=== PATIENT | female | born 1970 | race Caucasian/White ===

== ENCOUNTER 2016-06-21 12:59 | Inpatient (IN) | payer OTHER ==
[~2016-06-21] VITALS: Ht 157.5 cm; Wt 102.5 kg
--- NOTE | 2016-06-21 13:08 | NUR ---
PT AMBULATED TO ED LOBBY WITH SPOUSE, PT DENIES CHEST PAIN, PT REPORTS PAIN ONLY WHEN COUGING. PT RESPIRATIONS ARE EVEN AND UNLABORED BUT PT REPORTS SOB AND HAVING A COUGH FOR PAST COUPLE WEEKS. PT EDUCATED TO INFORM ME IF CONDITION WORSENS WHILE IN LOBBY, PT VERBALIZED UNDERSTANDING.
--- NOTE | 2016-06-21 14:17 | NUR ---
PT C/O SOB AND PRODUCTIVE COUGH W/BROWN SPUTUM X1 WK. VSS. RESPS E/U. NO S/S OF DISTRESS NOTED. COMFORT MEASURES IMPLEMENTED. CALL LIGHT W/IN REACH. PT AWAITING MSE. WILL CONTINUE TO MONITOR.
--- NOTE | 2016-06-21 15:03 | NUR ---
PT AWAITING MSE. VS WNL. RESPS E/U. NO S/S OF DISTRESS NOTED. WILL CONTINUE TO MONITOR.
--- NOTE | 2016-06-21 15:26 | NUR ---
MEDICATED ORDERED. PLEASE SEE EMR. BREATHING TX IN PROGRESS. XRAY AT BEDSIDE.
--- NOTE | 2016-06-21 16:28 | NUR ---
MEDICATED ORDERED. PLEASE SEE EMR.
[2016-06-21 17:24] LABS: BASOPHIL % 0.6 % (0-2); PLATELET COUNT 272 x10^3mcL (130-400); RED CELL DISTRIBUTION WIDTH 12.7 % (11.5-14.5)
[2016-06-21 17:29] LABS: CALCIUM 8.6 mg/dL (8.5-10.1); CREATININE SERUM 1.1 mg/dL (0.6-1.0); POTASSIUM SERUM 4.1 mmol/L (3.5-5.1)
[2016-06-21 17:35] LABS: ALBUMIN 3.4 g/dL (3.4-5.0); BILIRUBIN TOTAL 0.21 mg/dL (0.20-1.00); TOTAL PROTEIN, SERUM 7.7 g/dL (6.4-8.2)
--- NOTE | 2016-06-21 17:39 | NUR ---
UNABLE TO OBTAIN IV ACCESS. DR. DANIELSON MADE AWARE. PT REFUSED FURTHER ATTEMPTS.
--- NOTE | 2016-06-21 18:02 | NUR ---
BREATHING TX IN PROGRESS
--- NOTE | 2016-06-21 18:04 | NUR ---
MEDICATED ORDERED. PLEASE SEE EMR.
[2016-06-21] MEDS ORDERED: LISINOPRIL2.5 MG (18:46)
--- NOTE | 2016-06-21 19:21 | NUR ---
REPORT GIVEN TO SAÚL JORGENSEN FOR CONTINUATION OF CARE PRIMARY RN.
[2016-06-21 19:34] LABS: PHOSPHOROUS 3.4 mg/dL (2.5-4.9)
[2016-06-21 19:35] LABS: CHOLESTEROL/HDL RATIO 4.8
--- NOTE | 2016-06-21 19:35 | NUR ---
RECEIVED PT FROM ED VIA [employer]. CAME IN DUE TO SOB AND COUGH. AAOX4. NO SOB NOTED AT THIS TIME, EXPIRATORY WHEEZES NOTED ON AUSCULTATION. STATED THAT SHE HAS BROWNISH SPUTUM BEFORE ADMISSION BUT AFTER GETTING BREATHING TREATMENTS, SHE STARTED TO HAVE YELLOW PHLEGM. STATED THAT SHE HAS CHEST PAIN (5/10) BUT GETS RELIEF WHE SHE COUGHS. NEW IV SITE INSERTED ON THE RIGHT WRIST, GAUGE 22, W/ GOOD BLOOD RETURN, FLUSHES WELL. SIDE RAILS UPX2. CALL LIGHT ON REACH. ENDORSED.
[2016-06-21 19:44] LABS: T3 TOTAL 1.1 ng/mL
[2016-06-21 19:59] VITALS: BP 154/89
[2016-06-21 20:40] LABS: FREE T4 1.02 ng/dL (0.76-1.46); FREE THYROXINE INDEX 2.2 ug/dL (1.4-4.5); T4(THYROXINE) 7.9 ug/dL (4.7-13.3)
[2016-06-21 21:03] VITALS: BP 154/89
--- NOTE | 2016-06-22 00:21 | NUR ---
ABG ATTEMPTED X 2. PT REFUSED AFTER SECOND ATTEMPT. MD NOTIFIED.
[2016-06-22 00:22] VITALS: BP 130/86
--- NOTE | 2016-06-22 01:50 | NUR ---
PT RESTING IN BED. RR EVEN AND UNLABORED.NO ACUTE DISTRESS NOTED. IV INTACT AND PATENT. CALL LIGHT WITHIN REACH. BED IN LOWEST POSITION. WILL CONTINUE TO MONITOR.
[2016-06-22 05:20] VITALS: BP 144/92
--- NOTE | 2016-06-22 06:48 | NUR ---
PT REFUSED LAB DRAWS LAST NIGHT AND THIS MORNING. PAGED DR. CROOK, AWAITING CALL BACK.
--- NOTE | 2016-06-22 07:10 | NUR ---
REASSESSMENT DONE. PT AWAKE. COOPERATIVE OF CARE. PT C/O PRESSURE-LIKE HEADACHE AT 01/05. TELE 3 ST ON MONITOR. WHEEZING TO BILAT ORTEZ. BOWEL SOUNDS ACTIVE. PT IS AMBULATORY. IV INFUSING NS 50ML/HR TO RIGHT WRIST. BED IN LOW POSITION, CALL LIGHT WITHIN REACH. WILL CONTINUE TO MONITOR.
[2016-06-22 08:50] VITALS: BP 142/85
[2016-06-22 09:14] LABS: BASOPHIL % 0.3 % (0-2); PLATELET COUNT 278 x10^3mcL (130-400); RED CELL DISTRIBUTION WIDTH 12.7 % (11.5-14.5)
[2016-06-22 09:23] LABS: CALCIUM 8.7 mg/dL (8.5-10.1); CARBON DIOXIDE 24.8 mmol/L (21-32); CREATININE SERUM 1.1 mg/dL (0.6-1.0); MAGNESIUM 1.7 mg/dL (1.8-2.4); PHOSPHOROUS 2.3 mg/dL (2.5-4.9); POTASSIUM SERUM 3.3 mmol/L (3.5-5.1)
--- NOTE | 2016-06-22 10:15 | NUR ---
DR MCNEIL AWARE OF LACTIC ACID RESULTS. 3.3. WILL CONTINUE TO MONITOR.
--- NOTE | 2016-06-22 12:25 | NUR ---
PT IN HIGH FOWLERS. PASSED NON MEDS PT TOLERATED WELL. PT STATES HEADCHE HAS DECREASED. PT TALKING TO FAMILY. NO DISCOMFORT REPORTED AT MOMENT.CALL LIGHT WITHIN REACH.
[2016-06-22 14:08] VITALS: BP 141/74
[2016-06-22 14:13] LABS: UA SPECIFIC GRAVITY 1.015 (1.005-1.035); microscopic required? YES; urine erythrocyte NEGATIVE (NEGATIVE)
--- NOTE | 2016-06-22 14:25 | NUR ---
PT C/O OF HEADACHE 06/05 DULL. MEDICATED PER EMAR. PT TOLERATED WELL. CALL LIGHT WITHIN REACH.
[2016-06-22 14:32] LABS: AMPHETAMINE QUAL UR NONE DETECTED (NEG <=1000)
--- NOTE | 2016-06-22 16:00 | NUR ---
PT IN LOW FOWLERS. PT STATES COPPOLA IS 04/07. STATES "IM FEELING BETTER NOW" CALL LIGHT WITHIN REACH.
--- NOTE | 2016-06-22 19:56 | NUR ---
PT A/A/O X4. DENIES DIZZINESS AND HEADACHE THUS FAR. BREATH SOUNDS DIMINISHED ON THE RIGHT SIDE AND WHEEZES NOTED ON THE LEFT. BREATHING EVEN AND UNLABORED ON ROOM AIR. NON PRODUCTIVE COUGH NOTED. DENIES CHEST PAIN AND PRESSURE. BOWEL SOUNDS ACTIVE. NO C/O N/V AND ABD PAIN. IV INTACT ON THE RIGHT WRIST INFUSING WITH NS AT 50 ML/HR. MADE PT COMFORTABLE. PLACED CALL LIGHT WITH IN REACH. WILL CONTINUE TO MONITOR.
[2016-06-22 21:34] VITALS: BP 150/83
--- NOTE | 2016-06-22 22:26 | NUR ---
PT C/O FEELING ANXIOUS AND RESTLESS. GAVE PT ATIVAN IVP AND BENADRYL FOR ITCHYNESS. PT TOLERATED IT WELL. WILL CONTINUE TO MONITOR.
--- NOTE | 2016-06-22 23:36 | NUR ---
PT C/O PAIN. GAVE PT MORPHINE IVP. PT TOLERATED IT WELL. NO C/O RESTLESSNESS AND FEELING ANXIOUS THUS FAR. WILL CONTINUE TO MONITOR.
--- NOTE | 2016-06-23 05:28 | NUR ---
PT QUIET AND RESTING. NO C/O PAIN THUS FAR. IV INTACT AND INFUSING ORDERED. MADE PT COMFORTABLE. WILL ENDORSE TO THE AM NURSE ACCORDINGLY.
[2016-06-23 06:06] VITALS: BP 142/78
[2016-06-23 06:32] LABS: PLATELET COUNT 310 x10^3mcL (130-400); RED CELL DISTRIBUTION WIDTH 12.9 % (11.5-14.5)
[2016-06-23 06:53] LABS: CALCIUM 8.9 mg/dL (8.5-10.1); CARBON DIOXIDE 26.3 mmol/L (21-32); CREATININE SERUM 1.1 mg/dL (0.6-1.0); MAGNESIUM 2.1 mg/dL (1.8-2.4); PHOSPHOROUS 3.2 mg/dL (2.5-4.9); POTASSIUM SERUM 4.2 mmol/L (3.5-5.1)
[2016-06-23 07:04] LABS: BASOPHIL % 0 % (0-2)
--- NOTE | 2016-06-23 08:07 | NUR ---
RECIEVED REPORT FOR FLOOR FINISHER HELPER RN, PT IN BED RESTING QUIETLY ASSESSMENT MADE, PT AOX4 RR EVEN AND UNLABORED LUNG SOUNDS RHONCHI IN LL, HR WNL SCDS IN PLACE CAPILARY REFILL <3, BOWEL SOUNDS ACTIVE IN 4 QAUDRANT PT IS CONTINENT AMBULATED, MILD GENERALIZED WEAKNESS, SKIN WARM DRY AND INTACT, VERBILEZED PAIN 2/10, REPOSITION PT AND SET UP TRAY, IV PATENT AND INTACT, CALL LIGHT WITHIN REACH WILL CONTINUE TO MONITOR FOR CHANGES.
--- NOTE | 2016-06-23 08:30 | NUR ---
DR. MCNEIL MADE AWARE OF SEPSIS TRIGGER BY WBC LEVEL ELEVATION UP TO 16.6. PT ON SOLU-MEDROL, NO NEW ORDERS.
[2016-06-23 09:13] VITALS: BP 156/98
--- NOTE | 2016-06-23 12:48 | NUR ---
PT IN BED RESTING QUIETLY STATED SLEEPY DENIES PAIN, LUNCH TRAY AT BEDSIDE CALL LIGHT WITH IN REACH WILL CONTINUE TO MONITOR
[2016-06-23 14:00] VITALS: BP 151/86
[2016-06-23] MEDS ORDERED: MEDDP PO (15:59)
[2016-06-23] MEDS ORDERED: SINGULAIR10 MG PO (16:01)
[2016-06-23] MEDS ORDERED: PROAIR HFA8.5 GM IH (16:03)
[2016-06-23] MEDS ORDERED: ADV250/50 INH (16:04)
[2016-06-23] MEDS ORDERED: ZES10 PO (16:06)
[2016-06-23] MEDS ORDERED: CYCLOBENZAPRINE5 MG PO (16:07)
[2016-06-23] MEDS ORDERED: ZIT250 PO (16:10)
[2016-06-23] MEDS ORDERED: LAC PO (16:11)
[2016-06-23] MEDS ORDERED: ESGIC CAPSULE1 EACH PO (16:12)
[2016-06-23 17:16] VITALS: BP 151/86
--- NOTE | 2016-06-23 17:45 | NUR ---
PT RECIEVED DISCHARGE INSTRUCTION, FOLLOW UP AND PRESCRIPTION, VERBALIZING UNDERSTANDING, PT IS WAITING FOR RIDE
--- NOTE | 2016-06-23 18:52 | NUR ---
PT DISCHARGED 1851 VIA WHEELCHAIR TO LOBBY
== END 2016-06-23 18:52 | disposition home or self-care (01) | DRG 202 ==
LOC: ED 12:59 → MU 18:55 → DU 18:55 → MU 06-23 15:29
PROVIDERS: Family Medicine; Specialist; ADMIT Family Medicine
DX: J45.901 Unspecified asthma with (acute) exacerbation (principal); E43 Unspecified severe protein-calorie malnutrition; E87.1 Hypo-osmolality and hyponatremia; Q60.0 Renal agenesis, unilateral; Z68.41 Body mass index [BMI] 40.0-44.9, adult; I16.0 Hypertensive urgency; I12.9 Hypertensive chronic kidney disease with stage 1 through stage 4 chronic kidney disease, or unspecified chronic kidney disease; N18.3 Chronic kidney disease, stage 3 (moderate); E78.5 Hyperlipidemia, unspecified; E66.01 Morbid (severe) obesity due to excess calories
CPT/HCPCS: 80307; 83880; 84439; 94150; G0480; J0171; J1885; J2060; J2270; J2920; J2930; J7030; J7512; J7613; J7620; J7644; Q0092; Q0163

== ENCOUNTER 2017-10-16 15:22 | Emergency (ER) | payer OTHER ==
[~2017-10-16] VITALS: Ht 152.4 cm; Wt 90.3 kg
[~2017-10-16 15:22] MED LIST: ADV250/50 INH; CYCLOBENZAPRINE5 MG PO; ESGIC CAPSULE1 EACH PO; LAC PO; LISINOPRIL2.5 MG; MEDDP PO; PROAIR HFA8.5 GM IH; SINGULAIR10 MG PO; ZES10 PO; ZIT250 PO
[2017-10-16 15:44] VITALS: Ht 152.4 cm; Wt 90.3 kg
[2017-10-16 16:42] LABS: BASOPHIL % 0.4 % (0-2); CALCIUM 8.7 mg/dL (8.5-10.1); CARBON DIOXIDE 27.5 mmol/L (21-32); CHLORIDE SERUM 100 mmol/L (98-107); CREATININE SERUM 0.9 mg/dL (0.6-1.0); GFR1 > 60 mL/min; GLUCOSE SERUM 108 mg/dL (74-106); PLATELET COUNT 256 x10^3mcL (130-400); RED CELL DISTRIBUTION WIDTH 13.1 % (11.5-14.5); SODIUM SERUM 136 mmol/L (136-145)
[2017-10-16 16:46] LABS: ALKALINE PHOSPHATASE 136 U/L (46-116); ALT/SGPT 27 U/L (14-59); AST/SGOT 33 U/L (15-37); BILIRUBIN TOTAL 0.4 mg/dL (0.20-1.00); LIPASE 139 IU/L (73-393); TOTAL PROTEIN, SERUM 8.1 g/dL (6.4-8.2)
[2017-10-16 18:09] LABS: microscopic required? NO
[2017-10-16 18:26] LABS: urine erythrocyte NEGATIVE (NEGATIVE)
[2017-10-16 19:41] VITALS: BP 146/80
== END 2017-10-16 19:41 | disposition home or self-care (01) ==
LOC: ED 15:22
PROVIDERS: Emergency Medicine
DX: R10.9 Unspecified abdominal pain (principal); G89.29 Other chronic pain; M54.9 Dorsalgia, unspecified; R51 Headache; R35.0 Frequency of micturition; R11.0 Nausea; R68.83 Chills (without fever); J45.909 Unspecified asthma, uncomplicated; Z90.710 Acquired absence of both cervix and uterus
CPT/HCPCS: J2270; J2405; J3490; J7030